=== PATIENT | male | born 1955 | race Hispanic/Latino ===

== ENCOUNTER 2016-09-24 22:47 | Inpatient (IN) | payer BC ==
[2016-09-24 22:53] VITALS: BMI 25.7
[2016-09-25] MEDS: Pantoprazole 40 mg EC Tab PO SCH (06:29)
[2016-09-25] MEDS: Levothyroxine 25 MCG TAB PO SCH (06:29)
[2016-09-25] MEDS: Insulin Reg-LOW-Coverage SC SCH ×4 (07:18→22:09)
[2016-09-25] MEDS ORDERED: Insulin Regular 1 UNITS/0.01 ML ML SC SCH (07:30)
[2016-09-25] MEDS ORDERED: Thiamine 100 mg/ml Inj IV SCH (10:00)
[2016-09-25] MEDS: Multivitamin Therapeutic Tab PO SCH (10:31)
--- NOTE | 2016-09-25 10:36 | PN ---
DATE: 09/25/2016 Shortly, the patient is a 61-year-old male with history of alcohol use disorder, multiple m edical issues including lung cancer. The patient was admitted on the medical floor for evaluation of hemoptysis. Psych consult was called for patient's restless and agitated behavior. The patient was found to multifactorial delirium which is improving at present moment. The patient was stable enoug h in order to be moved to transitional care unit. The patient was followed up today. Family involve catie. This life insurance underwriter had prolonged conversation with the patient's yesterday. The patient gave permi ssion. The patient was followed up today. The patient presented to be alert and oriented, pleasant, cooperative, bright affect. The patient remembered this life insurance underwriter by name. The patient said that he i s feeling okay. The patient was educated about his medical issues as well as delirium stage as well as alcohol withdrawal syndrome. The patient verbalized understanding. The patient was appreciative medication was provided. The patient denied being depressed, denied thoughts of harming himself or o thers. Denied intent or plan. The patient's insight is improving. The patient wants to quit drinki ng, but at the same time, does not want to go to inpatient rehab. The patient denied feeling anxious , denied panic attacks. Reported to have fair sleep. The patient was educated about Seroquel and th e plan is to give as needed medication. The patient verbalized understanding. The patient denied an y withdrawal symptoms at the present moment. VITAL SIGNS: Stable. Temperature 97.2, pulse is 93, blood pressure 134/60, respirations 18. MEDICATIONS: Reviewed. Tylenol, folic acid, Synthroid, Ativan 1 mg 3 times a day scheduled, may be tapered down; Lopressor, multivitamins, Zofran, Protonix, vitamin B6, Seroquel will be as needed as w ell as thiamine 100 mg daily. MENTAL STATUS EXAMINATION: The patient is alert and oriented, pleasant, cooperative. Fair eye conta ct. Speech was normal rate, tone, quality, and quantity. Thought process was coherent and goal dire cted. Mood described as okay. Affect was reactive, mood congruent. Thought content: The patient d enied visual, auditory, tactile hallucinations. Denied paranoid ideations. The patient denied thoug hts of harming himself or others, denied intent or plan. Insight and judgment are fair. Impulses ar e well controlled. IMPRESSION: Multifactorial delirium is improving. The patient has history of lung cancer, also alco hol withdrawals as well as episodes of hemoptysis. Had atrial fibrillation, asthma, thrombocytopenia , Willis's esophagus. Multiple, multiple medical issues which contributed to the patient's delirium stage. PLAN: Continue current management. Continue current medications, Seroquel needs to be given as need ed. Multivitamins, thiamine and folic acid. Family was involved, discussed with the patient's yesterday, educated her about treatment plan and diagnosis. The patient gave permission. Meanwhile, the patient needs to go to AA meeting, NA meetings. If the patient expresses interest to go to [facility] rehab for alcohol addiction, social work needs to be involved. Meanwhile, this life insurance underwriter will sig n off from this case. The patient was educated in case of worsening of the symptoms ask medical team to contact this life insurance underwriter. The patient verbalized understanding. At present moment, the patient posed no threat to self or others. This life insurance underwriter will sign off. Thank you very much for letting me participate in care of your patient. Kelley Garcia MD cc: [phone] TT: 09/25/2016 10:35:40 Confirmation # [id number] Dictation # [id number] tn
[2016-09-26] MEDS: Pantoprazole 40 mg EC Tab PO SCH (06:38)
[2016-09-26] MEDS: Levothyroxine 25 MCG TAB PO SCH (06:38)
[2016-09-26] MEDS: Insulin Reg-LOW-Coverage SC SCH ×4 (06:43→22:03)
[2016-09-26] MEDS: Multivitamin Therapeutic Tab PO SCH (09:44)
[2016-09-26] MEDS: Thiamine 100 mg/ml Inj IM SCH (09:45)
--- NOTE | 2016-09-26 15:23 | PN ---
DATE: 09/26/2016 SUBJECTIVE: The patient is a 61-year-old, seen and examined. Still has unstable gait. He has tremo r in both upper extremities. Eating and tolerating. No abdominal pain. No nausea or vomiting, no d iarrhea. No hemoptysis, no hematemesis. PHYSICAL EXAMINATION: VITAL SIGNS: He is afebrile, pulse 70, respirations 18, blood pressure 130/76. LUNGS: Bilateral good airflow, no rhonchi or crackle. HEART: S1, S2 audible. No murmur. ABDOMEN: Soft, obese, nontender, no rebound, no guarding. NEUROLOGIC: He is awake and alert, communicative. LABORATORY: Blood sugar is 121. ASSESSMENT: 1. Cirrhosis of liver secondary to alcohol abuse. 2. Chronic atrial fibrillation. 3. Hypertension. 4. History of peptic ulcer disease. 5. Aortic valve replacement. 6. Chronic atrial fibrillation. 7. Cancer lung, status post right upper lobectomy. 8. Coronary artery disease. 9. Thrombocytopenia. PLAN: Will continue patient on aggressive physical therapy. Ativan should be tapered down slowly ac cording to his response. Will continue him on PPI. His Eliquis has been discontinued by cardiologis t. Will continue him on Pradaxa, thiamine, multivitamins and levothyroxine. Will follow this patien t on Wednesday. Lee Ford MD cc: [phone] TT: 09/26/2016 15:23:36 Confirmation # [id number] Dictation # [id number] mn
[2016-09-27 06:22] VITALS: RESP 18
[2016-09-27] MEDS: Insulin Reg-LOW-Coverage SC SCH ×4 (06:31→21:35)
[2016-09-27] MEDS: Levothyroxine 25 MCG TAB PO SCH (07:11)
[2016-09-27] MEDS: Pantoprazole 40 mg EC Tab PO SCH (07:11)
[2016-09-27] MEDS: Multivitamin Therapeutic Tab PO SCH (09:22)
[2016-09-27] MEDS: Thiamine 100 mg/ml Inj IM SCH (09:23)
[2016-09-28] MEDS: Levothyroxine 25 MCG TAB PO SCH (06:09)
[2016-09-28] MEDS: Pantoprazole 40 mg EC Tab PO SCH (06:09)
[2016-09-28] MEDS: Insulin Reg-LOW-Coverage SC SCH ×4 (06:39→22:20)
--- NOTE | 2016-09-28 08:07 | HP ---
The patient is a 61-year-old who was initially admitted because of abdominal discomfort, probably bec ause of alcohol consumption. He has alcoholic gastritis, alcoholic hepatitis. He was also in rapid AFib. He developed DTs the next day. He was started on Librium protocol. He was given banana bag. His was on hold because of his alcohol abuse and increased tendency to fall. So, the patient was stabilized and sent from acute care floor for physical therapy since he was deconditioned, had di fficulty walking, was unstable gait. It was high-risk to fall to go home. PAST MEDICAL HISTORY: Significant for: 1. Hypertension. 2. Chronic AFib. 3. History of CA lung with partial pneumonectomy. 4. Right upper lobectomy in 1999. 5. History of aortic valve replacement in 2009. 6. History of peptic ulcer disease. SOCIAL HISTORY: He is . His has MS and is not very ambulatory. Although he was denying alcohol use, when he was told that his alcohol level is 190 he did admit that he stated he fell off the wagon and started drinking again. No history of drug use. However, he has a history of smoking. ALLERGIES: He is not allergic to any medications. MEDICATIONS AT HOME: He is on Eliquis 5 mg twice a day, metoprolol 12.5 twice a day, thiamine 100 mg daily, losartan 50 mg daily, folic acid 1 mg daily, Ativan 0.5 twice a day. REVIEW OF SYSTEMS: Significant for bilateral hand shakes, generalized weakness, difficulty walking. On examination he is awake and alert, communicative. VITAL SIGNS: He is afebrile, pulse 90, respirations 18, blood pressure 154/91. LUNGS: Bilateral good airflow. No rhonchi or crackle. HEART: S1, S2 audible, no murmur. ABDOMEN: Soft, nontender, no rebound, no guarding. NEUROLOGICALLY: He is awake and alert, communicative. His urine culture that was done yesterday shows gram-negative rods, and colony count is 50,000. Curr ently he does not have fever. ASSESSMENT AND PLAN: 1. Resolving alcoholic gastritis, impending delirium tremens. 2. Chronic atrial fibrillation. 3. Gastritis. 4. Hypothyroidism. PLAN: Will continue patient on Ativan p.r.n. He is on Ativan 1 mg t.i.d. He is receiving folic aci d. He is on beta radha. He is on Protonix. He is getting Seroquel at night time. He is on levot hyroxine 25 mcg daily, thiamine 100 mg daily, and pyridoxine 50 mg daily. Will continue that. Encou rage ambulation. Discussed with the patient's , Kimberli. She is very much interested to send him for alcohol detox , but I spoke to the patient; he is not ready yet. He said he is not mentally ready to quit drinking yet. Lee Ford MD cc: [phone] TT: 09/25/2016 20:31:58 jn
--- NOTE | 2016-09-28 08:34 | CP.PCM.PCO ---
Physician Communication Note - Physician Communication Note Physician Communication Note: ativan on tapering schedule: today 1mg bid, then 0.5bid, then 0.5hs then dc
[2016-09-28] MEDS: Multivitamin Therapeutic Tab PO SCH (09:52)
[2016-09-28] MEDS: Thiamine 100 mg/ml Inj IM SCH (09:53)
--- NOTE | 2016-09-28 11:43 | PN ---
DATE: 09/28/2016 Shortly, patient is a 61-year-old male with multiple medical problems. The patient was adm itted on medical floor initially for hemoptysis. Psych was called for evaluation of restless and tiana tated behavior and delirium, hypoactive/hyperactive. The patient was also withdrawing from the alcoh ol. The patient was stabilized on the medical floor and was transferred to TCU unit. The patient wa s seen for the past week. This automatic typewriter inspector signed off on Wednesday. Dr. Ford asked to reevaluate patient for Ativan tapering dose. Also, patient's family contacted this automatic typewriter inspector. The patient's , Kimberli Mcclellan, , called and left a message. The patient was seen today. The patient presented to be alert and oriented, pleasant, cooperative. Fair eye contact. Speech was more productive. Th e patient said that he is doing very well. Denied being depressed, denied thoughts of harming himsel f or others, denied intent or plan. The patient complained of episodes of insomnia, but as per piotr mahan, it is expected that he is in the hospital. At the same time, patient denied visual, auditory, ta ctile hallucinations, denied paranoid ideation. The patient said that his family wants him to go to inpatient rehab, but he feels reluctant about that. This automatic typewriter inspector explored the option of day program f or dual diagnoses, anxiety as well as alcohol addiction. The patient said that he is drinking becaus e he feels anxious and this automatic typewriter inspector had impression that patient needs to be seen by psychiatrist as we ll as address his alcohol addiction. The patient was feeling kind of open to that option. The piotr nt said that he was going to Dr. Huston's office, [place], and patient is willing to go there if hi s family is in agreement with that. The patient was explained about options Vivitrol as well as nalt rexone. The patient said that he was on that medication before. The patient tolerated that well and patient is willing to do so. VITAL SIGNS: Stable. Temperature 97.9, pulse is 75, blood pressure 105/62, respirations 18, oxygen saturation is 92%. MEDICATIONS: Reviewed. Tylenol, folic acid, Humulin, Synthroid, Ativan 0.5 mg IV push q. 2 hours as needed for anxiety. Ativan will be decreased to 1 mg twice a day with a plan to taper that down, Lo pressor 12.5 mg twice a day, multivitamin, Zofran, Protonix, Seroquel 50 mg at the nighttime schedule d as well as vitamin B1. LABORATORIES: Reviewed. RECORDS: Reviewed. MENTAL STATUS EXAMINATION: As this automatic typewriter inspector described above, patient alert and oriented, pleasant, cool roofing installer perative. Speech was normal rate, tone, quality, and quantity. Mood described as "I feel better". Affect was reactive, mood congruent. Thought process coherent, goal directed. Thought content: The patient denied visual, auditory, tactile hallucinations, denied paranoid ideation. The patient parth ed thoughts of harming himself or others, denied intent or plan. Insight and judgment is improving. Impulses are well controlled. IMPRESSION: Delirium, multifactorial, which is improving, alcohol withdrawal symptoms are improving. The patient has multiple medical issues. Please see medical team note for more detailed informatio n. PLAN: This automatic typewriter inspector had prolonged conversation with the patient about importance to follow up with out patient psychiatrist as well as going to AA meetings, NA meetings and option to go to [facility] with Dr. Huston is explained. The patient and patient's were provided with the contact in formation of Dr. Huston's office and patient wants to think about that. At the same time, naltrexone option was explained to the patient. The patient verbalized understanding. Prolonged conversation w ith the patient's , Kimberli, took place today, . The patient denied thoughts of harmi ng himself or others. Mental status is improving. Ativan should be on a tapering dose. Today, 1 mg twice a day. Tomorrow, it will be 0.5 mg 3 times a day, then 0.5 mg twice a day, then one 0.5 mg at the nighttime, then discontinued. Multivitamins, thiamine and folic acid needs to be given to the p atient. Naltrexone was discussed with the patient. This automatic typewriter inspector will sign off. The patient would be nefit to go to follow up with [facility] on [address] The patient's was provided the contact information at that place. The patient poses no threat to self or others. Thank you very much for letting me participate in care of your patient. Kelley Garcia MD cc: [phone] TT: 09/28/2016 11:42:56 Confirmation # [id number] Dictation # [id number] en
--- NOTE | 2016-09-28 13:37 | PN ---
DATE: 09/28/2016 The patient is 61 years old, seen and examined, ambulatory, eating and tolerating. Shakes are much b rosie. PHYSICAL EXAMINATION: VITAL SIGNS: She is afebrile, pulse 65, respirations 18, blood pressure 117/66. LUNGS: Bilateral fair airflow, no rhonchi or crackle. HEART: S1, S2 audible. No murmur. ABDOMEN: Soft, nontender, no rebound, no guarding. NEUROLOGIC: The patient is awake and alert, communicative. LABORATORY EXAM: Blood sugar is 81. ASSESSMENT AND PLAN: 1. Status post impending delirium tremens, that is resolving. 2. Alcoholic gastritis. 3. Alcoholic hepatitis. 4. Chronic atrial fibrillation. 5. Peptic ulcer disease. 6. Status post aortic valve replacement. 7. History of cancer lung, status post partial pneumonectomy. 8. Cirrhosis of liver. PLAN: Currently, patient is off of anticoagulant because of her cirrhosis liver and alcohol dependen ce. Currently, patient is on Ativan 1 mg twice a day, folic acid 1 mg daily. He is on metoprolol, P rotonix. He is getting Seroquel 50 at bedtime. He is on levothyroxine. He is on multivitamin, thia mine and pyridoxine. I will request for cardiology evaluation to decide about anticoagulation status since he is not in withdrawal from alcohol anymore, although he is a high risk for fall and increase d tendency of bleeding with thrombocytopenia and cirrhosis liver. However, we will discuss with card iologist if we need to restart. I also had discussion will discuss with mortgage processing clerk for that decisi on. I also discussed with patient's who wished that he should go to alcohol rehab right from he re, but I spoke to social worker clinical. He cannot be accepted there. He can only be accepted from [facility] and she gave the family choices where he should be enrolled. The patient stated he wanted to g o home first and see his dog at his address and then he will get admitted in alcohol rehab. We will reevaluate patient in a.m. Lee Ford MD cc: [phone] TT: 09/28/2016 13:36:54 Confirmation # [id number] Dictation # [id number] sn
[2016-09-28 16:07] VITALS: TEMP 98.5; O2SAT 100
--- NOTE | 2016-09-29 02:22 | PN ---
DATE: 09/27/2016 SUBJECTIVE: The patient is a 61-year-old male seen and examined. He is unable to walk. He has trem or of upper extremity. He is able to tolerate a regular diet. No abdominal pain. No nausea, no vom iting, no hemoptysis. No events overnight. REVIEW OF SYSTEMS: As per HPI. Rest of 12-point review of systems reviewed and negative. PHYSICAL EXAMINATION: GENERAL: Comfortable in bed, no acute distress. VITAL SIGNS: Afebrile, temperature of 97.8. Heart rate is 70 per minute, blood pressure 120/70, res piratory rate 18 per minute. HEENT: Normal. CHEST: Air entry present, equal bilateral. No added sound. CARDIOVASCULAR: S1, S2 normal. No murmur, no gallop. ABDOMEN: Soft, nontender. No hepatosplenomegaly. EXTREMITIES: No edema. NEUROLOGIC: Awake, alert, oriented x 3, communicative. SKIN: No petechia, no rashes. SPINE: Normal. LABS: Reviewed. ASSESSMENT: 1. Cirrhosis of liver secondary to alcohol abuse. 2. Atrial fibrillation. 3. Peptic ulcer disease. 4. Lung cancer status post lobectomy. 5. Thrombocytopenia. PLAN: We will continue current medications. Continue physical therapy. Continue PPI. He was on an ticoagulation, Eliquis, discontinued by cardiology. Will continue Pradaxa, thiamine, multivitamin an d levothyroxine. Discussed with the staff nurse. Discussed with the patient. Violeta Martino MD cc: [id number] TT: 09/29/2016 02:21:53 Confirmation # [id number] Dictation # [id number] mn
[2016-09-29] MEDS: Pantoprazole 40 mg EC Tab PO SCH (06:21)
[2016-09-29] MEDS: Levothyroxine 25 MCG TAB PO SCH (06:22)
[2016-09-29] MEDS: Insulin Reg-LOW-Coverage SC SCH ×2 (06:42→12:22)
--- NOTE | 2016-09-29 08:59 | CP.PCM.PN ---
Subjective - Date & Time of Evaluation Date of Evaluation: 09/29/16 Time of Evaluation: 08:00 - Subjective Subjective: Stable on TCU. A/C issue is brought up. NO CP or SOB. Walking is better now. To be d/c home today with In-pt detox program starting 10/01. V/S noted, PE: Lungs: clear Cor.: irreg. S1S2 Abd.: soft Ext.: no edema Neuro.; alert CXR 09/27 noted: NAD Objective - Vital Signs/Intake and Output Vital Signs (last 24 hours): Temp Pulse Resp BP Pulse Ox 98.5 F 66 18 116/69 100 09/28/16 16:00 09/28/16 17:41 09/28/16 16:00 09/28/16 17:41 09/28/16 16:00 - Medications Medications: Current Medications Acetaminophen (Tylenol 325mg Tab) 650 mg PO Q6H PRN PRN Reason: Fever >100.4 F Folic Acid (Folic Acid) 1 mg PO DAILY [facility] Last Admin: 09/28/16 09:48 Dose: 1 mg Insulin Human Regular (Humulin R Low) 0 units SC ACHS [facility] PRN Reason: Protocol Last Admin: 09/29/16 06:42 Dose: Not Given Levothyroxine Sodium (Synthroid) 25 mcg PO 0600 [facility] Last Admin: 09/29/16 06:22 Dose: 25 mcg Lorazepam (Ativan) 0.5 mg IVP Q2 PRN; Protocol PRN Reason: Anxiety Lorazepam (Ativan) 1 mg PO BID [facility] PRN Reason: Protocol Last Admin: 09/28/16 17:40 Dose: 1 mg Metoprolol Tartrate (Lopressor) 12.5 mg PO BID [facility] Last Admin: 09/28/16 17:41 Dose: 12.5 mg Multivitamins (Thera Tab) 1 tab PO DAILY [facility] Last Admin: 09/28/16 09:52 Dose: 1 tab Ondansetron HCl (Zofran Inj) 4 mg IVP Q6H PRN PRN Reason: Nausea/Vomiting Pantoprazole Sodium (Protonix Ec Tab) 40 mg PO 0630 [facility] Last Admin: 09/29/16 06:21 Dose: 40 mg Pyridoxine HCl (Vitamin B6 50 Mg Tab) 50 mg PO DAILY [facility] Last Admin: 09/28/16 09:53 Dose: 50 mg Quetiapine Fumarate (Seroquel) 50 mg PO HS PRN; Protocol PRN Reason: psychosis, agitatoin Thiamine HCl (Vitamin B1 Inj) 100 mg IM DAILY [facility] Last Admin: 09/28/16 09:53 Dose: 100 mg Assessment and Plan - Assessment and Plan (Free Text) Plan: Assessment: S/P DT's Acute and chronic ETOH Abuse Alcoholic Liver disease and thrombocytopenia AVR AF Lung cancer with resection HBP Willis's Esophagus with high grade dysplasia Former Smoker Plan: Given alcoholism, Liver disease, unsteady gait and fall risk, current need for in-pt detox and other GI issues such as hemetemesis/hemoptysis on admission I think that senior care A/C is too high risk and that risks out-weigh the benefits. I discussed this with him at length. Upon completion of in-pt. detox he will come to the office for f/u and we will continue the discussion. IF A/C is to be resumed at a later date, I would advise a GI re-evaluation and perhaps an EGD (? varices) to better understand the risks of GIB, etc. I advised him to discontinue all alcohol use from now on and to continue in an AA type program after the detox. program is completed. He agreed.
[2016-09-29] MEDS: Thiamine 100 mg/ml Inj IM SCH (09:55)
[2016-09-29] MEDS: Multivitamin Therapeutic Tab PO SCH (09:55)
[2016-09-29 09:59] VITALS: BP 125/70; PULSE 71
--- NOTE | 2016-09-29 21:53 | DS ---
The patient is a 61-year-old, seen and examined, ambulatory. Still feels a little unstable, but does okay with walker. Anxious to go home. VITAL SIGNS: The patient is afebrile, pulse 71, respirations 18, blood pressure 125/70. LUNGS: Bilateral good airflow. No rhonchi or crackle. HEART: S1, S2 audible. ABDOMEN: Soft, nontender, no rebound, no guarding. NEUROLOGICALLY: The patient is awake and alert, communicative. LABORATORY EXAMINATION: Blood sugar 83. ASSESSMENT AND PLAN: 1. Alcoholic gastritis. 1. Alcohol intoxication, status post delirium tremens and alcohol with. 2. Paroxysmal atrial fibrillation. 3. Cirrhosis of liver. 4. Thrombocytopenia. 5. Coronary artery disease. 6. History of carcinoma lung, status post partial pneumonectomy. CT scan is unremarkable. PLAN: Dr. Patterson's input noted and appreciated. Given the patient's alcohol dependence, his cirrhos is liver, and thrombocytopenia, it was decided to discontinue his Eliquis. The patient understands t hat. He will follow with Dr. Patterson, and it will be decided about anticoagulation that has to be res tarted or not. There is a plan for inpatient alcohol detox, and the patient will be going and signin g in on at 1:00. All the information was given by child protective services social worker. Lee Ford MD cc: [phone] TT: 09/29/2016 21:52:39 vikas
== END 2016-09-29 14:24 | disposition home or self-care (01) | DRG 556 ==
LOC: TRCU 22:47
PROVIDERS: ADMIT Internal Medicine; ATTEND Internal Medicine
PROC: F07Z9FZ Gait Training/Functional Ambulation Treatment using Assistive, Adaptive, Supportive or Protective Equipment (ICD-10-PCS; principal; 2016-09-25)
PROC: F08Z4FZ Home Management Treatment using Assistive, Adaptive, Supportive or Protective Equipment (ICD-10-PCS; 2016-09-25)
DX: R26.2 Difficulty in walking, not elsewhere classified (principal); R26.81 Unsteadiness on feet; Z91.81 History of falling; F10.231 Alcohol dependence with withdrawal delirium; D69.59 Other secondary thrombocytopenia; I48.0 Paroxysmal atrial fibrillation; K70.30 Alcoholic cirrhosis of liver without ascites; I48.2 Chronic atrial fibrillation; K70.10 Alcoholic hepatitis without ascites; I10 Essential (primary) hypertension; K29.20 Alcoholic gastritis without bleeding; E03.9 Hypothyroidism, unspecified; J45.909 Unspecified asthma, uncomplicated; I25.10 Atherosclerotic heart disease of native coronary artery without angina pectoris; K27.9 Peptic ulcer, site unspecified, unspecified as acute or chronic, without hemorrhage or perforation; K22.711 Barrett's esophagus with high grade dysplasia; Z79.01 Long term (current) use of anticoagulants; Z85.118 Personal history of other malignant neoplasm of bronchus and lung; Z90.2 Acquired absence of lung [part of]; Z95.2 Presence of prosthetic heart valve; Z87.891 Personal history of nicotine dependence